=== PATIENT | female | born 1960 | race Caucasian/White ===

== ENCOUNTER 2019-03-18 10:01 | Inpatient (IN) | payer BC ==
--- NOTE | 2019-03-18 10:18 | ED ---
HPI Chest Pain - HPI Summary HPI Summary: Doctor in room upon arrival. This patient is a 59 year old F brought in by her father, Jay, to [facility] with a chief complaint of intermittent aching, heavy left anterior chest pain radiating to her left arm since mid-January 2019. The pain in her left arm is a throbbing pain that has kept her up at night before. Patient rated the pain 8/10 in severity this morning but 0/10 in severity currently. Patient reports lightheadedness (this morning) and SOB upon exertion. Patient denies fever, cough, swollen legs, calf pain, and left arm pain with movement currently. She did not take her BP medications this morning because she was waiting for them to get refilled, but BP meds were given upon arrival. 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 Her PCP is Dr. Shaw. She had 2-3 pieces of cantaloupe at 08:00 today. 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 Anju Sandoval, pt saw oncology at [facility] and declined radiation therapy). She denies PMHx of CHF, diabetes, and hyperlipidemia. She is a former smoker and drinks alcohol occasionally. FHx of brother with bicuspid aortic valve and father with aortic stenosis. Denies FHx of breast cancer. She has never had a stress test before. PRIOR ECHO at [facility] on 01/20/2019 SHOWS: Aortic Valve: The aortic valve is trileaflet. There is no evidence of aortic regurgitation. There is no evidence of aortic stenosis. Conclusions: The left ventricular chamber size is normal. The estimated ejection fraction is 55-60% septal dysychrony, otherwise normal wall motion. Abnormal left ventricular diastolic function is observed. The right ventricular global systolic function is normal. All valves show normal function. No prior echo to compare. Vital signs while in room: HR 115 bpm, BP 205/122. Home Medications Medication Instructions Recorded Confirmed Type Amlodipine Besylate [Norvasc] 5 mg PO QAM 02/04/19 02/12/19 History Biotin 1 mg PO DAILY 03/18/19 03/18/19 History Cholecalciferol (Vitamin D3) 2,000 unit PO DAILY 03/18/19 03/18/19 History [Vitamin D-3] Cyanocobalamin TAB* [Vitamin B12 1,000 mcg PO DAILY 03/18/19 03/18/19 History TAB*] Hydrochlorothiazide TAB* 25 mg PO DAILY 03/18/19 03/18/19 History [Hydrodiuril TAB*] Metoprolol Succinate XL TAB* 100 mg PO DAILY 03/18/19 03/18/19 History [Toprol XL TAB*] [place]-3S/Dha/Epa/Fish Oil [Fish 1 each PO DAILY 03/18/19 03/18/19 History Oil 1,200 mg Softgel] - History of Current Complaint Chief Complaint: EDChestPainROMI Time Seen by Provider: 03/18/19 10:03 Hx Obtained From: Family/Member Service Specialist - Father Pain Intensity: 8 - Allergy/Home Medications Allergies/Adverse Reactions: Allergies Allergy/AdvReac Type Severity Reaction Status Date / Time amoxicillin Allergy Rash Verified 03/18/19 10:09 gluten Allergy Shortness Verified 03/18/19 10:09 of Breath latex Allergy Hives Verified 03/18/19 10:09 tape Allergy Hives Uncoded 02/12/19 07:39 Home Medications: Home Medications Biotin 1 mg PO DAILY 03/18/19 [History Confirmed 03/18/19] Cholecalciferol (Vitamin D3) [Vitamin D-3] 2,000 unit PO DAILY 03/18/19 [ History Confirmed 03/18/19] Cyanocobalamin TAB* [Vitamin B12 TAB*] 1,000 mcg PO DAILY 03/18/19 [History Confirmed 03/18/19] Hydrochlorothiazide TAB* [Hydrodiuril TAB*] 25 mg PO DAILY 03/18/19 [History Confirmed 03/18/19] Metoprolol Succinate XL TAB* [Toprol XL TAB*] 100 mg PO DAILY 03/18/19 [History Confirmed 03/18/19] [place]-3S/Dha/Epa/Fish Oil [Fish Oil 1,200 mg Softgel] 1 each PO DAILY 03/18/19 [ History Confirmed 03/18/19] PMH/Surg Hx/FS Hx/Imm Hx Endocrine/Hematology History: Denies: Hx Diabetes Cardiovascular History: Reports: Hx Hypertension - on meds Denies: Hx Pacemaker/ICD, Other Cardiovascular Problems/Disorders Respiratory History: Denies: Hx Asthma History: Denies: Hx Renal Disease Sensory History: Reports: Hx Contacts or Glasses - glasses Denies: Hx Hearing Aid Opthamlomology History: Reports: Hx Contacts or Glasses - glasses Psychiatric History: Denies: Hx Panic Disorder - Cancer History Hx Chemotherapy: No Hx Radiation Therapy: No - Surgical History Surgery Procedure, Year, and Place: 2 C SECTION, 1985, 1989. CHOLECYSTECTOMY, 2000. MARIBETH BREAST BIOPSY , Rt LUMPECTOMY (BENIGN FIBROID), 1998 Hx Anesthesia Reactions: Yes - crying Infectious Disease History: No Infectious Disease History: Denies: Traveled Outside the [place] in Last 30 Days - Family History Known Family History: Positive: Cardiac Disease - brother with bicuspid aortic valve, father with aortic stenosis Negative: Other - Breast cancer - Social History Occupation: Works From/At Home Lives: With Family Alcohol Use: Weekly Alcohol Amount: 4 Substance Use Type: Reports: None Smoking Status (MU): Former Smoker Amount Used/How Often: pack a day for 30 yrs Have You Chewed or Dipped Tobacco in the LAST YEAR: No Have You Smoked in the Last Year: No Review of Systems Negative: Fever Positive: Chest Pain - Aching, heavy left anterior chest pain radiating to her left arm Positive: Shortness Of Breath - upon exertion. Negative: Cough Negative: Edema - swollen legs, Other - calf pain and left arm pain with movement currently Neurological: Other - this morning All Other Systems Reviewed And Are Negative: Yes Physical Exam - Summary Physical Exam Summary: Appearance: Ill-appearing, moderate pain distress, well-nourished Skin: Warm, color reflects adequate perfusion, dry Head: Normal Head/Face inspection, atraumatic Eyes: Conjunctiva clear ENT: Normal inspection Neck: Supple, no nodes, no JVD Respiratory: Lungs clear, normal breath sounds, no respiratory distress Cardio: Hypertensive, BP 205/122, tachycardic 115 bpm. Regular rate. No murmur, pulses normal, brisk capillary refill Abdomen: Soft, nontender Bowel sounds: Present Musculoskeletal: Strength Intact/ROM intact, no calf tenderness, no edema. Psychological: Normal Neuro: Alert, muscle tone normal, no focal deficit Triage Information Reviewed: Yes Vital Signs On Initial Exam: Initial Vitals Temp Pulse Resp BP Pulse Ox 98.4 F 115 16 205/122 98 03/18/19 10:07 03/18/19 10:07 03/18/19 10:07 03/18/19 10:07 03/18/19 10:07 Vital Signs Reviewed: Yes Diagnostics - Vital Signs Vital Signs Temp Pulse Resp BP Pulse Ox 03/18/19 10:07 98.4 F 115 16 205/122 98 - Laboratory Result Diagrams: 03/18/19 10:43 03/18/19 10:43 Lab Statement: Any lab studies that have been ordered have been reviewed, and results considered in the medical decision making process. - Radiology Chest X-Ray Radiology Interpretation Completed By: Radiologist Summary of Radiographic Findings: 10:54. NO ACTIVE CARDIOPULMONARY DISEASE IS NOTED. ED Physician has reviewed this imaging report. - CT Chest/Thorax CTA CT Interpretation Completed By: Radiologist Summary of CT Findings: 12:21. 1. NO PULMONARY ARTERIAL FILLING DEFECT TO SUGGEST PULMONARY EMBOLISM.. 2. HEPATOMEGALY WITH FATTY INFILTRATION OF LIVER. 3. 2.4 CM LEFT THYROID NODULE. [facility] [employer] [employer] INCIDENTAL THYROID. FINDINGS COMMITTEE RECOMMENDS THYROID ULTRASOUND FOR INCIDENTAL NONSUSPICIOUS THYROID. NODULES GREATER THAN OR EQUAL TO 1.5 CM IN SIZE FOR THE PATIENT OVER THE AGE OF 35. ED Physician has reviewed this imaging report. - EKG 10:09 Cardiac Rate: Tachycardia - 103 BPM EKG Rhythm: Sinus Rhythm ST Segment: Non-Specific Ectopy: None EKG Comparison: No Significant Change - Compared with 03/16/2001. Summary of EKG Findings: Normal AV, prolonged IV conduction time, in right bundle branch block pattern, normal QTC, right axis. No acute changes. 14:55 Cardiac Rate: NL - 70 bpm EKG Rhythm: Sinus Rhythm ST Segment: Non-Specific Ectopy: None EKG Comparison: No Significant Change - Compared with EKG earlier today, minimal ST depressions, V4 through V6 have resolved. Not a STEMI. Summary of EKG Findings: Nml AV/IV CT, nml QTc, and nml axis. No acute changes. Not a STEMI. Re-Evaluation - Re-Evaluation 1 Re-Evaluation Time: 11:15 Comment: Vitals: HR 97 bpm, BP 128/97, O2 sat 96%. 2 Re-Evaluation Time: 14:00 Comment: Updated patient on her CTA results and gave her a paper copy of the results. Patient is aware of thyroid nodule and need for followup. She has never had a stress test before. Vitals: HR 77 bpm, 133/85 BP, O2 sat 98%. 3 Re-Evaluation Time: 14:56 Comment: Pain level is 0/10. Second EKG is in progress. I informed the patient of her abnormal troponin levels. Vitals: HR 79 BPM, 146/72 BP, O2 Sat 98%. 4 Re-Evaluation Time: 15:04 Comment: I informed the patient of her second EKG results and told her that she will be admitted to Dr. Castellanos, hospitalist. Vitals: HR 79 bpm, 149/77 BP, O2 Sat 98% Chest Pain Course/Dx - Course Course Of Treatment: This patient is a 59 year old F brought in by father, Jay , to [facility] with a chief complaint of intermittent aching, heavy left anterior chest pain radiating to her left arm since mid-January 2019. She was not given aspirin here because she had already taken it at home. Troponin of 0.04 noted at 11:14. Discussed the results of the CTA during a re-eval and gave her a paper copy of the results. Patient is aware of thyroid nodule and need for followup. Troponin of 0.20 noted at 14:52, and a second EKG was ordered at that time. I discussed the case with Dr. Castellanos, hospitalist, who will admit the patient with dx of chest pain and elevated troponin. - Diagnoses Provider Diagnoses: Chest pain, Elevated troponin - Provider Notifications Discussed Care Of Patient With: Shira Castellanos - Hospitalist Time Discussed With Above Provider: 15:02 Instructed by Provider To: Admit As Inpatient - Critical Care Time Critical Care Time: 30-74 min - 30 minutes Discharge - Sign-Out/Discharge Documenting (check all that apply): Patient Departure - Admit Patient Received Moderate/Deep Sedation with Procedure: No - Discharge Plan Condition: Stable Disposition: ADMITTED TO [facility] - Attestation Statements Document Initiated by Scribe: Yes Documenting Scribe: Ty Raza Provider For Whom Scribe is Documenting (Include Credential): Glo Askew MD Scribe Attestation: Ty Roach, scribed for Glo Askew MD on 03/18/19 at 1745. Status of Scribe Document: Ready
--- OUTSIDE RECORDS SUMMARY | 2019-03-18 10:30 | XMS REPORT | Continuity of Care Document ---
:1960 External Reference #:[id number] Author Name Karey Ferguson Care Team Providers Name Role Phone Kassandra Shaw MD Primary Care Physician Unavailable Payers Date Identification Numbers Payment Provider Subscriber Policy Number: [id number] [facility] [employer] Name: [id number] [id number] PayID: [id number] [place] [id number] Advance Directives Description No Information Available Problems Date Description Provider Status Onset: 09/30/2014 Arthropathy Driss Samuels M.D. Active Family History Date Family Member(s) Observation Comments General Heart Disease General polymyalgia rheumatica in father General Hypertension Social History Type Date Description Comments Sex Unknown Marital Status Lives With Occupation [employer] Smokeless Tobacco Never Used Smokeless Tobacco ETOH Use Currently consumes alcohol Tobacco Use Start: Unknown End: Patient is a former smoker quit 2011 Unknown Recreational Drug Use Denies Drug Use Smoking Status Reviewed: 02/25/19 Patient is a former smoker quit 2011 Exercise Type/Frequency Exercises regularly Allergies, Adverse Reactions, Alerts Date Description Reaction Status Severity Comments 08/17/2014 Amoxicillin Active rash 01/27/2019 Latex rash Active 01/27/2019 Adhesive rash Active Medications Medication Date Status Form Strength Qnty SIG Indications Ordering Provider Vitamin D Active Tablets 2000Unit 1 by Unknown 00 mouth qd.. Metoprolol Succinate Active Tablets 50mg 1 by Unknown ER 00 ER 24HR mouth twice a day Amlodipine Besylate Active Tablets 5mg 1 by Unknown 00 mouth every day Biotin Active Tablets 1000mcg 1 tab Unknown 00 daily Vitamin B-12 Active Tablets 2500mcg take Unknown 00 Sub one tablet under the tongue every day Hydrochlorothiazide Active Tablets 25mg Valeria, 00 Kassandra Kirk MD Naproxen 09/30/20 Hx Tablets 500mg 60tab 1 M12.9 Driss 14 - s tablet Samuels, Unknown with M.D. food by mouth twice a day prn Metoprolol Tartrate Hx Tablets 25mg Unknown 00 - Unknown Vitamin B12 Hx Unknown 00 - 09/30/20 14 Immunizations Description No Information Available Vital Signs Date Vital Result Comment 02/25/2019 9:27am Heart Rate 74 /min Respiratory Rate 16 /min Body Temperature 99.0 F 01/27/2019 2:19pm Height 63 inches 5'3" Weight 250.00 lb Heart Rate 86 /min BP Systolic 140 mmHg BP Diastolic 88 mmHg Respiratory Rate 16 /min Body Temperature 99.2 F BMI (Body Mass Index) 44.3 kg/m2 04/09/2016 11:42am Height 63.5 inches 5'3.50" Heart Rate 64 /min BP Systolic Sitting 150 mmHg BP Diastolic Sitting 80 mmHg Body Temperature 98.9 F Pain Level 2 03/06/2016 8:58am Height 63.5 inches 5'3.50" Weight 262.00 lb Heart Rate 92 /min BP Systolic Sitting 162 mmHg BP Diastolic Sitting 98 mmHg Pain Level 3 BMI (Body Mass Index) 45.7 kg/m2 10/06/2014 10:24am Height 63.5 inches 5'3.50" Heart Rate 88 /min BP Systolic Sitting 138 mmHg BP Diastolic Sitting 90 mmHg Pain Level 3 09/30/2014 8:48am Height 63.5 inches 5'3.50" Weight 251.00 lb Heart Rate 76 /min BP Systolic Sitting 140 mmHg BP Diastolic Sitting 90 mmHg Pain Level 8 BMI (Body Mass Index) 43.8 kg/m2 08/17/2014 10:29am Height 63 inches 5'3" Weight 247.00 lb Heart Rate 100 /min BP Systolic 169 mmHg BP Diastolic 90 mmHg BMI (Body Mass Index) 43.7 kg/m2 Results Test Date Facility Test Result H/L Range Note Laboratory test 02/12/2019 [facility] Surgical SEE RESULT [address] [place] [address] [phone] Laboratory test 03/06/2016 [facility] Erythrocyte Sed 23 mm/Hr N 0-[address] [place] [address] [phone] Laboratory test 03/06/2016 [facility] Angiotensin 26 U/L N 8 - [address] [place] [address] [phone] C Reactive Protein 13.38 mg/L High < 5.00 3 Celiac Panel 03/06/2016 [facility] Tissue Transglutaminase <1.2 U/mL N [address] [place] [address] [phone] Immunoglobulin A 357 mg/dL Abnormal 61 - 356 Celiac Interpretation See Comment N 5 Hla B27 03/06/2016 [facility] Hla B27 Negative N [address] [place] [address] [phone] Hla B27 Interp See Comment N 7 Laboratory test 03/06/2016 [facility] Rheumatoid Factor <15 IU/ mL N <[address] [place] [address] [phone] Lyme Disease Serology Negative N Negative 9 Celiac Hla DQ1/DQ2 03/06/2016 [facility] Hla-Dqa1 SEE BELOW N [address] [place] [address] [phone] Hla-DQB1 SEE BELOW N 11 Celiac Gene Pairs Present? No N Celiac Gene Interpretation See Comment N 12 Laboratory test 03/06/2016 [facility] Magnesium 1.9 mg/dL N 1.9-2.[address] [place] [address] [phone] Iron & Iron Binding 03/06/2016 [facility] Iron 97 g/dL N 50- [address] [place] [address] [phone] Unsaturated Iron Binding 336 g/dL N Total Iron Binding Capacity 433 g/dL N 250-450 % Iron Saturation 22 % N 15-55 Laboratory test 03/06/2016 [facility] Liver-Kidney <5.0 U N [address] [place] [address] [phone] Smooth Muscle Antibody Negative N Negative 14 Comp Metabolic Panel 03/06/2016 [facility] Sodium 137 mmol/L N 133-145 [address] [place] [address] [phone] Potassium 4.4 mmol/L N 3.5-5.0 Chloride 102 mmol/L N 101-111 Co2 Carbon Dioxide 29 mmol/L N 22-32 Anion Gap 6 mmol/L N 2-11 Glucose 96 mg/dL N 70-100 Blood Urea Nitrogen 11 mg/dL N 6-24 Creatinine 0.76 mg/dL N 0.51-0.95 BUN/Creatinine Ratio 14.5 N 8-20 Calcium 10.0 mg/dL N 8.6-10.3 Total Protein 7.0 g/dL N 6.4-8.9 Albumin 4.4 g/dL N 3.2-5.2 Globulin 2.6 g/dL N 2-4 Albumin/Globulin Ratio 1.7 N 1-3 Total Bilirubin 0.50 mg/dL N 0.2-1.0 Alkaline Phosphatase 73 U/L N 34-104 Alt 75 U/L High 7-52 Ast 38 U/L N 13-39 Egfr Non- 79.3 N >60 Egfr 102.0 N >60 15 Laboratory test 03/06/2016 [facility] Ferritin 85.3 ng/mL N 11 -307 finding [address] [place] [address] [phone] Uric Acid 5.8 mg/dL N 2.3-6.6 Connective Tissue 03/06/2016 [facility] Anti-Nuclear 0.2 U N [address] [facility] [place] [address] [phone] Cyclic Citrullinated Peptide <15.6 U N 17 Interpretation See Comment N 18 Laboratory test 08/17/2014 [facility] Uric Acid 5.7 mg/dL N 2.3-6.6 [address] [facility] [place] [address] [phone] Lyme Disease Serology Negative N Negative 19 1 SEE RESULT BELOW Name: DESTINY BUCIO : [address]: Anju Sandoval MD Acct: [id number] Unit: [id number] AGE: 59 Location: SDS Re02/12/19 SEX: F Status: DEP SDC SPEC: [id number] LIANE: 02/12/19-[address]: Anju Sandoval MD REQ: [id number] RECD: 02/12/19-115 STATUS: SOUT _ ORDERED: LEVEL 5 FINAL DIAGNOSIS Breast, right, needle localization excision: -- Ductal carcinoma in situ (DCIS), with: Size: 12 mm maximal span. Extent and distribution: Single focus identified.. Architectural pattern: Solid and perform. Nuclear grade: 3. Necrosis: Not seen. Microcalcifications: Surgical margins are clear by greater than 5 mm. Microinvasion: Not seen. ER/KS by immunohistochemistry with appropriate controls: ER: Positive, 3+, 100% of DCIS KS: Positive , 3+, 80% of DCIS Microcalcifications: Not seen. Other findings: Exuberant prior biopsy site related changes. Senescent fibroadenoma. Moderate epithelial hyperplasia without atypia. pTNM histopathologic stage: pTis. Comment: Hormone receptor studies reported above are from prior biopsy [id number]. Dr. Chilel has reviewed this case and concurs. CONTINUED ON NEXT PAGE DEPARTMENT OF PATHOLOGY, [address], [place], [place] [address] Bi Cueva M.D. Director [facility] # [id number] RUN DATE: 02/16/19 [facility] LAB LIVE PAGE 2 Patient: DESTINY BUCIO [id number] (Continued) PRE-OPERATIVE DIAGNOSIS (Continued) PRE-OPERATIVE DIAGNOSIS Right breast mass; short stitch superior, medium stitch medial, long stitch lateral GROSS DESCRIPTION The specimen is received fresh labeled, Right Breast Mass, Short Stitch Superior, Medium Stitch Medial, Long Stitch Lateral, and consists of a 7.0 x 6.0 by up to 3.3 cm yellow ovoid portion of fibrofatty soft tissue with three attached sutures which are designated as follows: long-lateral, short-superior and medium-medial. The specimen is focally surfaced by a 0.5 up to 0.2 cm gonsales-cotto skin fragment on the mid superior anterior aspect. There is a needle localization wire entering the specimen adjacent to the skin fragment and extending towards the central to inferior anterior specimen. There is a 1.6 x 1.6 by up to 1.2 cm gonsales-white to brown rubbery to gelatinous focally disrupted area associated with the localization wire, 0.2 cm from the superior anterior margin. There is a 0.2 x 0.1 cm silver metallic cylindrical clip within this area. Additionally, there is a 0.9 x 0.9 x 0.8 cm gonsales-white well-defined focally cystic rubbery nodule, 0.6 cm inferomedial to the larger area. The remaining cut surface consists predominantly of yellow lobulated adipose tissue with scant interspersed gonsales-white fibrous tissue. The specimen is inked as follows: superior anterior-blue, inferior anterior-green and deep-black, serially sectioned from lateral to medial and branch customer service representative sections are submitted in cassettes A through J to include gelatinous lesion in cassettes C-D and F-G including section associated with wire and clip in cassette D and cystic nodule in cassettes G through I. Signed by and Reported on: Bi Cueva MD [address] END OF REPORT DEPARTMENT OF PATHOLOGY, [address] [place] [address] Bi Cueva M.D. Director [facility] # [id number] 2 Test Performed by: [place] [address] Pediatric Hospitalist: To Streeter II, M.D., Ph.D. 3 Acute inflammation: >10.00 4 REFERENCE VALUE <4.0 (Negative) Test Performed by: [place] [id number] Pediatric Hospitalist: To Streeter II, M.D., Ph.D. 5 Negative serology. Celiac disease unlikely. However, approximately 10% of patients with celiac disease are seronegative. Also, patients who are already adhering to a gluten-free diet may be seronegative. If celiac disease is highly clinically suspected, consider HLA-DQ typing. Test Performed by: [place] [address] Pediatric Hospitalist: To Streeter II, M.D., Ph.D. 6 REFERENCE VALUE Not Applicable 7 RESULT: HLA-B27 antigen was not detected. ADDITIONAL INFORMATION Method: Flow Cytometry Performing Laboratory CLIA# [id number] Test Performed by: [place] [address] Pediatric Hospitalist: To Streeter II, M.D., Ph.D. 8 Test Performed by: [place] [address] Pediatric Hospitalist: To Streeter II, M.D., Ph.D. 9 Serologic response to B. burgdorferi infection is not detected, but cannot rule out early infection during which low or undetectable antibody levels to B. burgdorferi may be present. If clinically indicated, a new serum specimen should be submitted in 7-14 days. Test Performed by: [place] [address] Pediatric Hospitalist: oT Streeter II, M.D., Ph.D. 10 RESULT: 02:01,05 REFERENCE VALUE Not Applicable 11 RESULT: 03:01,03:03 DQ Serologic Equivalent: 7,9 REFERENCE VALUE Not Applicable 12 The absence of HLA celiac permissive genes would make the presence of celiac disease unlikely. ADDITIONAL INFORMATION Method: Molecular typing of HLA antigens performed using reverse SSOP and/or SSP methods, reported as serological equivalents and low to medium resolution molecular values. Performing Laboratory CLIA# [id number] Test Performed by: [place] [address] Pediatric Hospitalist: To Streeter II, M.D., Ph.D. 13 REFERENCE VALUE <=20.0 (Negative) Test Performed by: [place] [address] Pediatric Hospitalist: To Streeter II, M.D., Ph.D. 14 Test Performed by: [place] [address] Pediatric Hospitalist: To Streeter II, M.D., Ph.D. 15 Because ethnic data is not always readily available, this report includes an eGFR for both -Americans and non- Americans. The National Kidney Disease Education Program (NKDEP) does not endorse the use of the MDRD equation for patients that are not between the ages of 18 and 70, are , have extremes of body size, muscle mass, or nutritional status, or are non- or non-. According to the National Kidney Foundation, irrespective of diagnosis, the stage of the disease is based on the level of kidney function: Stage Description GFR(mL/min/1.73 m(2)) 1 Kidney damage with normal or decreased GFR 90 2 Kidney damage with mild decrease in GFR 60-89 3 Moderate decrease in GFR 30-59 4 Severe decrease in GFR 15-29 5 Kidney failure <15 (or dialysis) 16 REFERENCE VALUE <=1.0 (Negative) 17 REFERENCE VALUE <20.0 (Negative) 18 Tests for antibodies to dsDNA and MARTÍN antigens are not performed automatically unless the CHALINO result is > or= 3.0 U. Studies performed at [facility] indicate that positive CHALINO results <3.0 U are rarely accompanied by positive second order tests. Test Performed by: [facility] [place] [address] Pediatric Hospitalist: To Streeter II, M.D., Ph.D. 19 Serologic response to B. burgdorferi infection is not detected, but cannot rule out early infection during which low or undetectable antibody levels to B. burgdorferi may be present. If clinically indicated, a new serum specimen should be submitted in 7-14 days. Test Performed by: [facility] [place] [address] Pediatric Hospitalist: Vignesh Morales III, M.D. Procedures Date Code Description Status 02/12/2019 36679 Mastectomy Partial Completed 02/12/2019 87914 Mastectomy Partial Completed 02/12/2019 [id number] Mammogram Completed 01/20/2019 10519 ECHO Transthorasic Realtime 2D W Doppler & Color Flow Completed Hosp 01/18/2019 [id number] Mammogram Completed 10/30/2018 [id number] Mammogram Completed 07/15/2017 [id number] Mammogram Completed 12/25/2016 [id number] Mammogram Completed 08/17/2014 07339 Xray Knee 3 Views Completed 08/17/2014 63948 Xray Knee 3 Views Completed Encounters Type Date Location Provider Dx Diagnosis Office Visit [facility] Anju Sandoval MD C50.911 Malignant neoplasm 2:15p Of [facility] of unsp site of right female breast Office Visit 04/09/2016 Rheumatology Paulina Nicole.9 Arthropathy, 11:40a [facility] Tom unspecified M22.2x9 Patellofemoral disorders, unspecified knee M06.4 Inflammatory polyarthropathy Office Visit 03/06/2016 9:00a Rheumatology Guanakito Robertson2.9 Arthropathy, [facility] Choudhary M.D. 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 M62.838 Other muscle spasm R74.0 Nonspec elev of levels of transamns & lactic acid dehydrgnse R79.82 Elevated C-reactive protein (CRP) Office Visit 10/06/2014 10:20a Rheumatology Driss Samuels, 716.96 Arthropathy [facility] Vaishali Unspec Lower Leg Office Visit 09/30/2014 9:00a Rheumatology Driss Samuels 716.96 Arthropathy [facility] Vaishali Unspec Lower Leg Office Visit 08/17/2014 10:00a Orthopedic Yang Hernandez 716.96 Arthropathy [facility] Tom Unspec Lower Leg Plan of Treatment Future Appointment(s):03/03/2019 1:50 pm - Alejandrina Huffman MD at [facility] Wkbibjuodlu92/28/2019 - Anju Sandoval, MDC50.911 Malignant neoplasm of unspecified site of right female breasFollow up:Please feel free to return and see me as needed.
[2019-03-18] MEDS ORDERED: Metoprolol Tartrate TAB* 50 mg PO ONE (10:40)
[2019-03-18] MEDS ORDERED: amLODIPine TAB* 5 MG PO ONE ×2 (10:41→18:59)
[2019-03-18] MEDS ORDERED: Hydrochlorothiazide TAB* 25 MG PO ONE (10:41)
[2019-03-18 10:52] LABS: ABS Basophils 0 10^3/ul (0-0.2); ABS Eosinophils 0.2 10^3/ul (0-0.6); ABS Lymphocytes 2.8 10^3/ul (1.0-4.8); ABS Monocytes 0.6 10^3/ul (0-0.8); ABS Neutrophils 2.5 10^3/ul (1.5-7.7); ABS Nucleated RBC 0 10^3/ul; Eosinophil % 2.6 %; Hematocrit 41 % (33-41); Hemoglobin 13.9 g/dL (12.0-16.0); Lymphocyte % 46.5 %; Mean Corpuscular HGB Conc 34 g/dL (31-36); Mean Corpuscular Hemoglobin 30 pg (27-31); Mean Corpuscular Volume 88 fL (80-97); Mean Platelet Volume 7.5 fL (7.4-10.4); Nucleated Red Blood Cells % 0; Platelet Count 334 10^3/uL (150-450); Red Blood Count 4.63 10^6 /uL (3.70-4.87); Red Cell Distribution Width 14 % (10.5-15); White Blood Count 6.1 10^3/uL (3.5-10.8)
[2019-03-18 11:11] LABS: Albumin 4.3 g/dL (3.2-5.2); Albumin/Globulin Ratio 1.4 (1-3); BUN/Creatinine Ratio 14.3 (8-20); Calcium 9.5 mg/dL (8.6-10.3); EGFR African American 104.4 (>60); EGFR Non-African American 86.2 (>60); Potassium 3.6 mmol/L (3.5-5.0); Total Bilirubin 0.5 mg/dL (0.2-1.0); Total Protein 7.3 g/dL (6.4-8.9)
[2019-03-18 11:13] LABS: Troponin I 0.04 ng/mL (<0.04)
[2019-03-18] MEDS ORDERED: Iohexol 350* (CONTRAST) 500 ML MDV IV ONE (11:43)
[2019-03-18 14:39] LABS: T4, Total 8.6 mcg/dL (6.09-12.23)
[2019-03-18 14:44] LABS: Free T4 1.02 ng/dL (0.61-1.12)
[2019-03-18 14:51] LABS: Troponin I 0.2 ng/mL (<0.04)
[2019-03-18 15:31] LABS: TSH (Thyroid Stimulating Horm) 0.69 mcIU/mL (0.34-5.60)
[2019-03-18] MEDS ORDERED: Heparin DRIP 25,000 UNITS(*) 25,000 UNITS/500 ML BAG IV SCH (16:15)
[2019-03-18] MEDS ORDERED: Al Hydrox/Mg Hydrox/Simet LIQ* 30 ML UDC PO PRN (16:16)
[2019-03-18] MEDS ORDERED: Magnesium Hydroxide LIQ* 30 ML UDC PO PRN (16:16)
[2019-03-18] MEDS ORDERED: Acetaminophen TAB* 325 MG PO PRN (16:16)
[2019-03-18] MEDS ORDERED: NS 0.9% 1000 ML** 1,000 ML IV SCH (16:30)
[2019-03-18] MEDS ORDERED: Heparin DRIP 25,000 UNITS(*) 25,000 UNITS/500 ML BAG ONE (16:47)
[2019-03-18] MEDS ORDERED: Heparin VIAL(*) 5000 UNITS/ML VIAL (FIVE THOUSAND) ONE (16:47)
[2019-03-18 17:54] LABS: Troponin I 0.24 ng/mL (<0.04)
[2019-03-18] MEDS ORDERED: Ticagrelor* 90 MG TAB PO ONE (19:00)
[2019-03-18] MEDS ORDERED: Nitroglycerin TAB 0.4 MG* 0.4 MG TAB SL PRN (19:02)
--- NOTE | 2019-03-18 19:12 | CONSULT ---
Subjective Date of Service: 03/18/19 Interval History: Date of admission and consult 03/18/2019 PMD: Dr. Shaw Service: Hospitalist CC: Chest and arm pain Reason for consult: NSTEMI HPI Destiny Bucio is a 59 year old woman with a history as below. She is accompanied by her . She has had several months of intermittent left arm aching and throbbing. It could be 5 to 10 days between episodes. One time it woke her up and could not get back to sleep. Another time was playing with children. It was not reliably brought on with exertion. Yesterday had dyspnea on exertion which she thought was very unusual for her. This AM at 8:30 AM (usually takes BP medications at 8 AM but was waiting for refills) she experienced very sever left arm symptoms. This was same quality as before but worse intensity. It was also associated with left upper chest and left scapula region pain. She took aspirin 325 mg x 3, called her father who took her to [facility] ER. She is now asymptomatic. Her initial BP was 205/122 mmHg. She ruled in for NSTEMI with rising troponin levels. PMhx/surgical hx - Obesity - HTN. Amlodipine and HCTZ were added to metoprolol this December. She had kept track of BP at home for 2 weeks then and the BP readings were better but - she can't be specific with numbers. The BP on a 01/27/2019 surgical office visit was 144/88 mmHg - Prior tobacco use, on and off for years, < 1 PPD, quit 6 years ago. - Dyslipidemia, not on a statin - Breast cancer: s/p lobectomy right breast last month for DCIS - Pertinent negative is she denies any history of bleeding, anemia, blood transfusion or kidney disease allergies: amoxicllin, gluten, latex soc hx Prior tobacco, no excessive etoh or drug use family hx: Father had CABG age 69 and went on to have a TAVR at age ~ 80 [address] Garcia Brother has bicuspid AoV and had to be replaced Medications Active Medications: Active Medications Generic Name Dose Route Start Last Admin Trade Name Freq PRN Reason Stop Dose Admin Acetaminophen 650 mg 03/18/19 16:16 Tylenol Tab* PO Q4H PRN FEVER/PAIN Al Hydrox/Mg Hydrox/Simethicone 30 ml 03/18/19 16:16 Maalox Plus* PO Q6H PRN INDIGESTION Amlodipine Besylate 10 mg 03/19/19 09:00 Norvasc Tab* PO QAM [facility] Aspirin 81 mg 03/19/19 09:00 Aspirin Ec Tab* PO DAILY [facility] Atorvastatin Calcium 80 mg 03/18/19 21:00 Lipitor* PO 2100 [facility] Cyanocobalamin 1,000 mcg 03/19/19 09:00 Vitamin B12 Tab* PO DAILY [facility] Hydrochlorothiazide 25 mg 03/19/19 09:00 Hydrodiuril Tab* PO DAILY [facility] Heparin Sodium/Dextrose 25,000 units in 500 mls @ 0 mls/hr 03/18/19 16:15 16:56 Heparin Drip 25,000 Units(*) IV 19 mls/hr PER RATE [facility] Administration Protocol Per Protocol Sodium Chloride 1,000 mls @ 75 mls/hr 03/18/19 16:30 Ns 0.9% 1000 Ml IV PER RATE [facility] Magnesium Hydroxide 30 ml 03/18/19 16:16 Milk Of Magnesia Liq* PO Q4H PRN CONSTIPATION Metoprolol Succinate 50 mg 03/18/19 21:00 Toprol Xl Tab* PO BID [facility] Nitroglycerin 0.4 mg 03/18/19 19:02 Nitroglycerin Tab 0.4 Mg* SL Q5M PRN ANGINA Potassium Chloride 40 meq 03/18/19 21:00 Klor Con Er Tab* PO 03/18/19 21:01 ONCE ONE Ticagrelor 90 mg 03/19/19 09:00 Brilinta* PO BID [facility] Home Medications: Amlodipine Besylate [Norvasc] 5 mg PO QAM 02/04/19 [History Confirmed 03/18/19] Biotin 1 mg PO DAILY 03/18/19 [History Confirmed 03/18/19] Cholecalciferol (Vitamin D3) [Vitamin D-3] 2,000 unit PO DAILY 03/18/19 [ History Confirmed 03/18/19] Cyanocobalamin TAB* [Vitamin B12 TAB*] 1,000 mcg PO DAILY 03/18/19 [History Confirmed 03/18/19] Hydrochlorothiazide TAB* [Hydrodiuril TAB*] 25 mg PO DAILY 03/18/19 [History Confirmed 03/18/19] Metoprolol Succinate XL TAB* [Toprol XL TAB*] 100 mg PO DAILY 03/18/19 [History Confirmed 03/18/19] [place]-3S/Dha/Epa/Fish Oil [Fish Oil 1,200 mg Softgel] 1 each PO DAILY 03/18/19 [ History Confirmed 03/18/19] Review of Systems - Measurements Intake and Output: Intake and Output Last 24 Hours 03/16/19 03/17/19 03/18/19 03/19/19 06:59 06:59 06:59 06:59 Weight 256 lb - Review of Systems Constitutional Symptoms: Negative: Weight Gain, Weight Loss, Weakness, Fatigue Dermatology: Negative: Rash, Skin Lesions HEENT: Negative: Change in Hearing, Vertigo Eyes: Negative: Change in Vision, Double Vision Thyroid: Negative: Primary Hypothyroidism, Primary Hyperthyroidism, Weight Loss, Weight Gain Pulmonary: Positive: Shortness of Breath, Exercise Intolerance Negative: Cough, Sputum, Hemoptysis, Wheezing, Respiratory Distress, COPD, Asthma Cardiology: Positive: Chest Pain, Shortness of Breath Negative: Palpitations, Swelling of Ankles, Peripheral Vascular Dis, Edema, Faintness, Syncope, Claudication, Paroxysmal Nocturnal Dyspnea, Orthopnea Gastroenterology: Negative: Abdominal Pain, Nausea, Vomiting, Anorexia, Haematemesis, Melena Genital - Urinary: Negative: Dysuria, Hematuria Musculoskeletal: Negative: Joint Pain, Joint Stiffness Endocrinology: Positive: Obesity Negative: Polydipsia, Polyuria, Gynecomastia, Pituitary Disease, Other Hematologic/Lymphatic: Negative: Anemia, Easy Brusing, Hx Leukemia, Hx Lymphoma, Use of Anticoagulant, Use of Antiplatelet Drugs Neurology: Negative: Change in Balancing, Change in Coordination, Change in Memory, Hx of Stroke\TIA, Hx Seizures Psychiatry: Negative: Unusual Anxiety, Suicidal Ideation Allergic/Immunologic: Negative: Hx HIV, Immunocompromise Review of Systems Statement: All other review of systems negative, unless stated above. Objective Vital Signs: Temp Pulse Resp BP Pulse Ox 97.8 F 77 18 132/96 97 03/18/19 17:52 03/18/19 17:52 03/18/19 17:52 03/18/19 17:52 03/18/19 17:52 Appearance: nad, pleasant Neck: Trachea Midline Respiratory: Symmetrical Chest Expansion and Respiratory Effort, Clear to Auscultation Cardiovascular: NL Sounds; No Murmurs; No JVD, RRR, No Edema Abdominal: NL Sounds; No Tenderness; No Distention, - - obese Extremities: No Edema, No Clubbing, Cyanosis Skin: No Rash or Ulcers Neurological: Alert and Oriented x 3 Laboratory Results: 03/18/19 10:43 03/18/19 10:43 Total Bilirubin 0.50 mg/dL (0.2-1.0) 03/18/19 10:43 AST 27 U/L (13-39) 03/18/19 10:43 ALT 42 U/L (7-52) 03/18/19 10:43 Alkaline Phosphatase 61 U/L (34-104) 03/18/19 10:43 Total Protein 7.3 g/dL (6.4-8.9) 03/18/19 10:43 Albumin 4.3 g/dL (3.2-5.2) 03/18/19 10:43 Globulin 3.0 g/dL (2-4) 03/18/19 10:43 Albumin/Globulin Ratio 1.4 (1-3) 03/18/19 10:43 TSH 0.69 mcIU/mL (0.34-5.60) 03/18/19 10:43 03/18/19 03/18/19 03/18/19 10:43 14:12 17:07 Troponin I 0.04 H* 0.20 H* 0.24 H* 01/2019 hgba1c 5.5 tri 142, tchol 271 ldl 172 hgba1c 5.5 Diagnostic Imaging: ekgs today: 1: ST 103 bpmp, kaur leads limited by artifact, subtle ST depression v4-v6 ? rate related vs. ischemia 2: NSR 70 bpm, LAE, normal EKG 3: NSR 75 bpm, subtle ST depression v4-v5 not present on ekg from 03/2011 echo 01/2019 reviewed and interpreted as Normal LVEF no segmental wall motion abnormalities noted, mild LVH, normal LA size, no significant valvular abnormalities noted - aortic valve not well visualized but appears tricuspid, unable to estimate PASP (unlikely to be significantly elevated based on other supportive findings) Assessment/Plan 1. NSTEMI - Suspect type 1 HI, hypertensive related also on differential - Class IV symptoms despite being on a BB and CCB at home 2. Obesity 3. HTN 4. Hyperlipidemia 5. Prior tobacco use - Start aspirin 81 mg po daily (ordered) - Start brilinta 180 mg x 1 now then 90 mg po bid (ordered) - Continue heparin gtt - Start lipitor 80 mg (ordered) - Change home toprol 100 mg po daily to 50 mg bid for now - Give extra 5 mg of amlodipine x 1 now then increase to 10 mg po daily starting tomorrow (ordered) - Continue hctz 25 mg po daily - Use PRN SL NTG tonight (ordered) - Needs IV fluid for tomorrow Cardiac catheterization with intent for revascularization indicated and recommended. Risks, benefits and alternatives discussed and patient wished to proceed. Discussed with Dr. Russo on phone. Will plan for tomorrow 03/19/2019. Thank you for allowing me to participate in the cardiovascular care of this patient. Please do not hesitate to contact me with questions or concerns.
[2019-03-18] MEDS: Metoprolol Succinate XL TAB* 50 MG PO SCH (20:21)
[2019-03-18] MEDS: Atorvastatin* 80 MG TAB PO SCH (20:21)
--- NOTE | 2019-03-18 20:32 | HP ---
CC: Dr. Kassandra Shaw * HISTORY AND PHYSICAL: DATE OF ADMISSION: 03/18/19 PRIMARY CARE PROVIDER: Dr. Kassandra Shaw. OTHER PROVIDERS: Dr. Camacho in consultation. ATTENDING PHYSICIAN: Dr. Castellanos * (dictated by Elias Vernon NP) CHIEF COMPLAINT: Chest pain. HISTORY OF PRESENT ILLNESS: Mrs. Bucio is a 59-year-old female with a past medical history significant for hypertension and breast cancer who presented to the emergency room today after an episode of chest pain around 0830. Patient reports that she was moving articles out of her bathroom in order to mop the floor and she started to have left-sided chest pain and left arm pain. Patient rates this pain as an 8/10 and describes the pain as a strong ache. Patient reports the pain did not have any associated symptoms and resolved on its own. Given these symptoms, patient called her father, who brought her to the emergency room via private car. On further assessment, patient reports that this morning when she first awoke and was making breakfast for her grandchildren , she did feel lightheaded and thought this was out of the ordinary. In addition, she reports that yesterday she was at the park with her grandchildren and she noticed that she was much more winded than she normally is. She reports no recent illness to describe this increase in shortness of breath. Finally, the patient also describes that she has been having a throbbing in her left arm for "a while," approximately 2 to 3 weeks. She reports 2 weeks ago, she was kept awake all night due to this throbbing in her left arm that she could not resolve. She also mentions that she has been having these "episodes" of a quick ache on the left side of her chest for a couple weeks. She said sometimes they would last a few minutes, other times they would last a couple hours. Patient reports they resolved on their own and they did not have any associated symptoms. Patient has been dealing with a diagnosis of breast cancer on the right and has been attributing these symptoms to stress and therefore, did not seek evaluation until today. While in the emergency department, patient had an EKG. Her initial EKG showed sinus rhythm with ST depression in V4 and V5. Patient's repeat EKG showed sinus rhythm and no noted ST depression. While in the emergency department, patient also had a CBC which was unremarkable and a CMP which revealed elevated glucose at 116. She also had initial troponin that was 0.04. Patient's repeat troponin was 0.20. Given these findings and patient's symptoms, we were asked to consult for admission. On my assessment, patient denies chest pain or any other symptoms including shortness of breath, palpitations, dizziness, weakness. When listening to her lungs, patient does report that taking a deep breath gives her the sensation of a muscle ache in her left chest. PAST MEDICAL HISTORY: 1. Hypertension. 2. Breast cancer. PAST SURGICAL HISTORY: 1. section. 2. Cholecystectomy. 3. Tubal ligation. 4. Lumpectomy in 1999 which was benign. 5. Lumpectomy on right in January 2019 which revealed breast cancer. HOME MEDICATIONS: 1. [place]-3 one each p.o. daily. 2. Biotin 1 mg p.o. daily. 3. HCTZ 25 mg p.o. daily. 4. Vitamin B12 at 1000 mcg p.o. daily. 5. Vitamin D 2000 units p.o. daily. 6. Metoprolol succinate XL tab 100 mg p.o. daily. 7. Amlodipine 5 mg p.o. q.a.m. ALLERGIES: Patient is allergic to AMOXICILLIN, LATEX, ADHESIVE TAPE, GLUTEN. FAMILY HISTORY: Patient reports her family history is positive for hypertension and cardiac disease. She reports mom has hypertension. She reports dad has hypertension, heart disease, polymyalgia rheumatica. SOCIAL HISTORY: Patient is . Patient lives with her . 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 Patient is a former smoker; she quit in 2011. Patient reports she smoked approximately 30 years on and off approximately at 1 pack per day. Patient reports 1 to 2 drinks weekly of alcohol. Patient denies drug use. REVIEW OF SYSTEMS: Constitutional: No fevers. No anorexia. No weight loss. Cardiac: Currently, no chest pain, no edema, no shortness of breath. Respiratory: No cough, no hemoptysis. Currently, no shortness of breath, but did have shortness of breath yesterday. GI: No nausea, vomiting. No diarrhea. No abdominal pain. : No gross hematuria or dysuria. Neuro: No focal weakness or sensory loss. The patient does report dizziness this morning that has resolved. Eyes: No visual complaints. ENT: No sore throat. Musculoskeletal: No arthritis or myalgias. Skin: No rashes or lesions. Psych : No anxiety or depression. PHYSICAL EXAMINATION GENERAL: Mrs. Bucio is a 59-year-old female who is sitting on the bed in the ED. She is in no acute distress. Appears stated age. VITAL SIGNS: Temp 98.4, HR 86, RR 16, O2 saturation 98% on room air, BP 151/85. HEENT: PERRLA. EOMs intact. Oral mucosa is moist without lesion. Posterior pharynx is clear. NECK: Full range of motion. No lymphadenopathy. RESPIRATORY: Symmetrical chest expansion. No accessory muscle use. Lungs are clear to auscultation. No rhonchi, wheezes, or rubs. CV: Regular rate and rhythm. S1, S2 present. No murmurs, rubs, or gallops. ABDOMEN: Soft, nontender to palpation. Bowel sounds x4. EXTREMITIES: Skin is warm and smooth bilaterally. No edema. No clubbing or cyanosis. Pedal pulses 2+ bilaterally. MUSCULOSKELETAL: Full range of motion. No pain or deformities. NEURO: Awake, alert, and oriented x4. Motor strength is 5/5 in the upper and lower extremities. SKIN: Grossly intact. DIAGNOSTIC STUDIES/LAB DATA: WBC 6.1, hemoglobin 13.9, hematocrit 41, platelets 334. Sodium 140, potassium 3.6, chloride 105, carbon dioxide 26. BUN 10, creatinine 0.70, glucose 116. Lactic acid 1.4. Troponin 0.04, repeat 0.20. Chest x-ray: Impression: No acute cardiopulmonary disease is noted. Chest/thorax CTA: Impression: No pulmonary artery filling deficit to suggest pulmonary embolism. Hepatomegaly without fatty infiltration of liver. A 2.4 cm left thyroid nodule. The [employer] Incidental Thyroid Findings Committee recommends thyroid ultrasound for incidental nonsuspicious thyroid nodules greater than or equal to 1.5 cm in size for patients over the age of 35. ASSESSMENT AND PLAN: Mrs. Bucio is a 59-year-old female with a past medical history significant for hypertension and breast cancer who presents to the emergency department today with complaints of chest pain and was found to have an elevated troponin. Patient will be admitted for acute coronary syndrome. 1. ACS/NSTEMI: As mentioned above, patient will be admitted for acute coronary syndrome. Given patient's chest pain and reported history, there is concern for acute coronary syndrome. Patient has been started on heparin drip. Patient was not given aspirin in the emergency department as she took 3 tabs of [address] Camacho was consulted and will see patient. In addition, Dr. Camacho recommended changing patient's Toprol from 100 mg p.o. daily to 50 mg b.i.d., which has been done and will start tonight. Patient also has a hemoglobin A1c, lipids, TSH ordered. 2. Hypertension: Patient has been mildly hypertensive here in the emergency room. It looks as if patient did not take her morning meds this morning; therefore, she was given them in the ED. We will continue her home medications with the change in the Toprol as mentioned above. 3. Breast cancer: Patient had a lumpectomy with Dr. Sandoval. Patient should follow up as recommended. Patient did not have radiation or chemotherapy. 4. Thyroid nodule: As mentioned above, there is incidental finding of a thyroid nodule on her CT. I would recommend patient follow up with her primary care regarding further imaging. 5. FEN: Patient will be n.p.o. until evaluated by cardiology as she may need intervention. 6. Code status: Patient is a full code. 7. Surrogate decision maker: Patient's surrogate decision maker will be her , Jet Bucio, who can be reached at [phone]. 8. DVT prophylaxis: Based on the DVT risk assessment, patient is high risk. Patient is currently on a heparin drip in preparation for possible cardiac catheterization. TIME SPENT: Approximately 70 minutes were spent on this admission, greater than half the time was spent with the patient and caregiver obtaining my history and performing my physical exam and reviewing my plan of care. The case has been reviewed with my attending, Dr. Castellanos, who is in agreement with my plan of care. ELIAS VERNON, LEELEE [id number]/[facility] #: [id number] KATHERINE
[2019-03-18] MEDS ORDERED: Potassium Chlor TAB* 20 MEQ TAB.ER PO ONE (21:00)
[2019-03-18 21:50] LABS: Activated Partial Thrombo Time 39.9 seconds (26.0-36.3); INR 0.98 (0.77-1.02)
[2019-03-19] MEDS ORDERED: Heparin VIAL(*) 5000 UNITS/ML VIAL (FIVE THOUSAND) IV PRN (00:07)
[2019-03-19] MEDS ORDERED: Metoprolol Tartrate TAB* 25 MG PO ONE (00:21)
[2019-03-19 05:44] LABS: ABS Basophils 0 10^3/ul (0-0.2); ABS Eosinophils 0.2 10^3/ul (0-0.6); ABS Lymphocytes 4.1 10^3/ul (1.0-4.8); ABS Monocytes 0.6 10^3/ul (0-0.8); ABS Neutrophils 3.3 10^3/ul (1.5-7.7); ABS Nucleated RBC 0 10^3/ul; Hematocrit 39 % (33-41); Hemoglobin 13.5 g/dL (12.0-16.0); Mean Corpuscular HGB Conc 35 g/dL (31-36); Mean Corpuscular Hemoglobin 31 pg (27-31); Mean Corpuscular Volume 88 fL (80-97); Mean Platelet Volume 7.4 fL (7.4-10.4); Nucleated Red Blood Cells % 0.1; Platelet Count 325 10^3/uL (150-450); Red Cell Distribution Width 14 % (10.5-15); White Blood Count 8.3 10^3/uL (3.5-10.8)
[2019-03-19 06:01] LABS: ALT 37 U/L (7-52); AST 21 U/L (13-39); Albumin/Globulin Ratio 1.4 (1-3); Alkaline Phosphatase 60 U/L (34-104); Anion Gap 9 mmol/L (2-11); BUN/Creatinine Ratio 14.7 (8-20); Blood Urea Nitrogen 11 mg/dL (6-24); CO2 Carbon Dioxide 27 mmol/L (22-32); Calcium 9.4 mg/dL (8.6-10.3); Chloride 104 mmol/L (101-111); Cholesterol 198 mg/dL; EGFR African American 96.4 (>60); EGFR Non-African American 79.6 (>60); Globulin 2.9 g/dL (2-4); Glucose 115 mg/dL (70-100); HDL Cholesterol 51.4 mg/dL; LDL Cholesterol 119 mg/dL; Magnesium 2.1 mg/dL (1.9-2.7); Potassium 3.5 mmol/L (3.5-5.0); Sodium 140 mmol/L (135-145); Total Protein 6.9 g/dL (6.4-8.9); Triglycerides 140 mg/dL
[2019-03-19 06:07] LABS: Troponin I 0.11 ng/mL (<0.04)
[2019-03-19] MEDS: Aspirin EC TAB* 81 MG TAB.EC PO SCH (08:31)
[2019-03-19] MEDS: amLODIPine TAB* 5 MG PO SCH (08:31)
[2019-03-19] MEDS: Cyanocobalamin TAB* 500 MCG PO SCH (08:31)
[2019-03-19] MEDS: Ticagrelor* 90 MG TAB PO SCH ×2 (08:31→21:29)
[2019-03-19] MEDS: Metoprolol Succinate XL TAB* 50 MG PO SCH ×2 (08:31→21:28)
[2019-03-19] MEDS ORDERED: amLODIPine TAB* 5 MG PO SCH (09:00)
[2019-03-19] MEDS ORDERED: Metoprolol Succinate XL TAB* 100 MG PO SCH (09:00)
[2019-03-19] MEDS ORDERED: NS 0.9% 1000 ML** 1,000 ML IV SCH ×2 (09:00→13:45)
[2019-03-19] MEDS ORDERED: Hydrochlorothiazide TAB* 25 MG PO SCH (09:00)
--- NOTE | 2019-03-19 10:17 | PN ---
Subjective Date of Service: 03/19/19 Interval History: HOSPITALIST PROGRESS NOTE Patient seen and examined at bedside. Care reviewed and d/w Dorina Saenz RN. She feels better today. No further episodes of chest pain/pressure or arm discomfort. Family History: Unchanged from Admission Social History: Unchanged from Admission Past Medical History: Unchanged from Admission Objective Active Medications: Acetaminophen (Tylenol Tab*) 650 mg PO Q4H PRN PRN Reason: FEVER/PAIN Last Admin: 03/18/19 23:48 Dose: 650 mg Al Hydrox/Mg Hydrox/Simethicone (Maalox Plus*) 30 ml PO Q6H PRN PRN Reason: INDIGESTION Amlodipine Besylate (Norvasc Tab*) 10 mg PO QAM [facility] Last Admin: 03/19/19 08:31 Dose: 10 mg Aspirin (Aspirin Ec Tab*) 81 mg PO DAILY [facility] Last Admin: 03/19/19 08:31 Dose: 81 mg Atorvastatin Calcium (Lipitor*) 80 mg PO 2100 [facility] Last Admin: 03/18/19 20:21 Dose: 80 mg Cyanocobalamin (Vitamin B12 Tab*) 1,000 mcg PO DAILY [facility] Last Admin: 03/19/19 08:31 Dose: 1,000 mcg Heparin Sodium (Porcine) (Heparin Vial(*)) 0 units IV .FOR BOLUSES PRN PRN Reason: HEPARIN DRIP BOLUSES Last Admin: 03/19/19 00:14 Dose: 4,000 units Hydrochlorothiazide (Hydrodiuril Tab*) 25 mg PO DAILY [facility] Last Admin: 03/19/19 08:31 Dose: 25 mg Sodium Chloride (Ns 0.9% 1000 Ml) 1,000 mls @ 100 mls/hr IV .per rate [facility] Last Admin: 03/19/19 08:32 Dose: 100 mls/hr Magnesium Hydroxide (Milk Of Magnesia Liq*) 30 ml PO Q4H PRN PRN Reason: CONSTIPATION Metoprolol Succinate (Toprol Xl Tab*) 50 mg PO BID [facility] Last Admin: 03/19/19 08:31 Dose: 50 mg Nitroglycerin (Nitroglycerin Tab 0.4 Mg*) 0.4 mg SL Q5M PRN PRN Reason: ANGINA Ticagrelor (Brilinta*) 90 mg PO BID [facility] Last Admin: 03/19/19 08:31 Dose: 90 mg Vital Signs - 8 hr 03/19/19 03/19/19 03/19/19 03:50 08:00 08:16 Temperature 98.1 F Pulse Rate 96 76 Respiratory 16 16 18 Rate Blood Pressure 134/74 154/81 (mmHg) O2 Sat by Pulse 98 100 Oximetry Oxygen Devices in Use Now: None Appearance: Pleasant morbid obese lady lying in bed in NAD. Eyes: No Scleral Icterus Ears/Nose/Mouth/Throat: Mucous Membranes Moist Neck: Trachea Midline Respiratory: Symmetrical Chest Expansion and Respiratory Effort, Clear to Auscultation Cardiovascular: NL Sounds; No Murmurs; No JVD, RRR Extremities: No Edema Neurological: Alert and Oriented x 3, NL Muscle Strength and Tone Result Diagrams: 03/19/19 05:22 03/19/19 05:27 Assess/Plan/Problems-Billing Assessment: Mrs Bucio is a 59yo F with PMH of morbid obesity with BMI 46, HTN, breast CA s/p lumpectomy, HLD, who presented to ED with a couple weeks of episodes of left arm pain, followed by chest pressure, and at last dyspnea and chest pain, found to have NSTEMI. - Patient Problems (1) NSTEMI (non-ST elevated myocardial infarction) Comment: - Asypmtomatic at this time. - No significant arrhythmia on Telemetry. - Cardiology input appreciated. - Continue Aspirin, Brilinta, Atorvastatin, Metoprolol, Amlodipine, Heparin drip. - Plan for cath today. (2) DVT prophylaxis Comment: - Heparin drip. (3) Full code status Status and Disposition: Inpatient.
[2019-03-19] MEDS ORDERED: Lidocaine 1% INJ* 10 MG/ML 30 ML SDV ONE (10:56)
[2019-03-19] MEDS ORDERED: Iohexol 350 (CONTRAST) 200 ML MDV IV ONE ×2 (10:56→12:24)
[2019-03-19] MEDS ORDERED: fentaNYL* 50 MCG/ML 2 ML VIAL (100 MCG VIAL) ONE ×3 (11:08→12:43)
[2019-03-19] MEDS ORDERED: Heparin(*) 1000 UNIT/ML 10 ML VIAL CATH LAB IV ONE ×2 (11:08→12:36)
[2019-03-19] MEDS ORDERED: Midazolam* 1 MG/ML 5 ML VIAL (5 MG) ONE (11:08)
[2019-03-19] MEDS ORDERED: VERAPAMIL 2.5 MG/ML 2 ML VIAL ** 5 mg/2 ml ONE (11:08)
[2019-03-19] MEDS ORDERED: nitroGLYCERIN DRIP* 25,000 MCG/250 ML BTL ONE (11:09)
[2019-03-19] MEDS ORDERED: Heparin 2 UNITS/ML IVPREMIX* 2,000 UNIT/1,000 ML BAG IV ONE (12:31)
[2019-03-19] MEDS ORDERED: Nitroglycerin TAB 0.4 MG* 0.4 MG TAB SL PRN (13:39)
[2019-03-19 13:41] LABS: INR 1.19 (0.77-1.02)
[2019-03-19] MEDS: Atorvastatin* 80 MG TAB PO SCH (21:28)
[2019-03-20 05:44] LABS: ABS Basophils 0 10^3/ul (0-0.2); ABS Eosinophils 0.2 10^3/ul (0-0.6); ABS Lymphocytes 3.2 10^3/ul (1.0-4.8); ABS Monocytes 0.7 10^3/ul (0-0.8); ABS Neutrophils 4.5 10^3/ul (1.5-7.7); ABS Nucleated RBC 0 10^3/ul; Eosinophil % 2.3 %; Hematocrit 40 % (33-41); Hemoglobin 13.8 g/dL (12.0-16.0); Lymphocyte % 37.2 %; Mean Corpuscular HGB Conc 35 g/dL (31-36); Mean Corpuscular Hemoglobin 31 pg (27-31); Mean Corpuscular Volume 88 fL (80-97); Mean Platelet Volume 7.2 fL (7.4-10.4); Nucleated Red Blood Cells % 0; Platelet Count 339 10^3/uL (150-450); Red Blood Count 4.53 10^6 /uL (3.70-4.87); Red Cell Distribution Width 14 % (10.5-15); White Blood Count 8.6 10^3/uL (3.5-10.8)
[2019-03-20] MEDS: Metoprolol Succinate XL TAB* 50 MG PO SCH (09:31)
[2019-03-20] MEDS: Cyanocobalamin TAB* 500 MCG PO SCH (09:31)
[2019-03-20] MEDS: Aspirin EC TAB* 81 MG TAB.EC PO SCH (09:32)
[2019-03-20] MEDS: amLODIPine TAB* 5 MG PO SCH (09:32)
[2019-03-20] MEDS: Ticagrelor* 90 MG TAB PO SCH (09:32)
[2019-03-20 11:56] VITALS: BP 135/89
[2019-03-20 12:03] LABS: Calcium 9.8 mg/dL (8.6-10.3); Potassium 3.7 mmol/L (3.5-5.0)
[2019-03-20 12:08] LABS: BUN/Creatinine Ratio 12.2 (8-20); EGFR African American 97.9 (>60); EGFR Non-African American 80.9 (>60)
--- NOTE | 2019-03-21 12:03 | DS ---
CC: Dr. Kassandra Shaw; Dr. Camacho; Dr. Russo * DISCHARGE SUMMARY: DATE OF ADMISSION: 03/18/19 DATE OF DISCHARGE: 03/20/19 PRIMARY CARE PROVIDER: Dr. Kassandra Sahw. CONSULTING FILLER FEEDER: Dr. Camacho. MATERIAL HANDLING CREW SUPERVISOR: Dr. Russo. DISCHARGE DIAGNOSES: 1. Rby-[id number]-[id number] myocardial infarction. 2. Morbid obesity with BMI of 46. SECONDARY DIAGNOSES: 1. Hypertension. 2. Breast cancer. MEDICATION LIST: 1. Fish oil 1 tablet p.o. daily. 2. Biotin 1 mg p.o. daily. 3. Hydrochlorothiazide 25 mg p.o. daily. 4. Cyanocobalamin 1000 mcg p.o. daily. 5. Cholecalciferol 2000 units p.o. daily. New medications: 1. Brilinta 90 mg p.o. b.i.d. 2. Nitroglycerin 0.4 mg sublingual q.5 minutes p.r.n. chest pain, maximum 3 doses. 3. Metoprolol succinate 50 mg p.o. b.i.d. 4. Atorvastatin 80 mg p.o. at bedtime. 5. Aspirin 81 mg p.o. daily. 6. Amlodipine 10 mg p.o. daily. HOSPITAL COURSE: Ms. Bucio is a 59-year-old lady with a past medical history as stated above that presented to the emergency room with complaints of left chest and arm discomfort. For more details about her presentation, I refer you to her history and physical. [id number] ND. In the emergency room, the patient had an initial troponin of 0.04 that peaked at 0.24. She was seen in consultation by Cardiology (Dr. Camacho) and his impression was the patient had a type 1 ND with class IV symptoms despite being on beta jaclyn and calcium channel jaclyn. His recommendation was for dual- antiplatelet therapy with aspirin and Brilinta , heparin drip, high-dose statin, to change her metoprolol to 50 mg twice a day and increase amlodipine. He discussed the case with Dr. Russo and the patient was taken to the company laborer on 03/19/19 where she had 1 drug-eluting stent placed to her LAD. The patient did well after the procedure with no further episodes of chest pain or discomfort. The patient had a hemoglobin A1c of 5.8 and a lipid profile showing triglycerides 140, cholesterol 198, LDL of 119, HDL of 51. She was felt to be medically stable for discharge to follow up with Dr. Camacho as outpatient. PHYSICAL EXAMINATION: Vital Signs: Temperature 98, heart rate 85, respiratory rate is 14, oxygen saturation is 95% room air, blood pressure 135/89. General: The patient is a pleasant, middle-aged, obese lady sitting up in bed, in no acute distress. CVS: Normal S1, S2. Regular rate and rhythm. Chest: Breath sounds bilaterally with no added sounds. Abdomen is obese, bowel sounds present. Extremities: No edema. Her right wrist cardiac cath site shows no significant hematoma or ecchymosis. Pulses are present with good capillary refill. Neuro: She is alert and oriented x3, able to move all 4 extremities. DIET: Heart-healthy diet. ACTIVITIES: As tolerated. The patient received education about exercise limitations after cardiac cath. DISPOSITION: To home. STATUS IN THE HOSPITAL: Inpatient. CONDITION AT THE TIME OF DISCHARGE: Fair. The patient received education about dietary changes and she will continue her efforts to lose weight. Her lipid profile and her hemoglobin A1c needs to be monitored as outpatient and I believe she will require higher doses of beta jaclyn as outpatient to bring her heart rate down closer to 60s to 70s. The patient received education about signs and symptoms that would prompt her return to the emergency department. Please keep in mind, this is a summarized version of this patient's hospital stay. If you need more information, please feel free to call me at [phone] or please obtain the full medical records. TIME SPENT: Approximately, 45 minutes was spent to complete this discharge. [id number]/[facility] #: [id number] KATHERINE
--- NOTE | 2019-03-21 22:39 | CATH ---
CC: Dr. Shaw; Dr. Russo * STENT REPORT: DATE OF PROCEDURE: 03/19/19 - ROOM #ICU-08 PRIMARY CARE PHYSICIAN: Dr. Shaw. PROCEDURES: Right radial artery access bilateral selective coronary cineangiography, left heart catheterization, left ventriculography. PROCEDURE ACCESS: Right radial artery sheath 6F slender. TECHNICAL CHALLENGE DURING THE PROCEDURE: Catheter torque because of significant angulation at the junction of the right subclavian artery and the aorta as well as rotation of the aorta. This made engagement of the RCA and LCA difficult. The left was engaged with a 6FL 3.5, the RCA with an MP. MEDICATIONS: 1. Subcu lidocaine. 2. IV Versed. 3. IV fentanyl. 4. Nitroglycerin 300 mcg. 5. Heparin 3000 units. 6. Verapamil 3 mg IA. 7. Aspirin 81 mg p.o. 8. Brilinta 90 mg p.o. pre laborer prestressed concrete. 9. Heparin 7000 units IV. HEMODYNAMICS: Initial AO 120/76. LV 144/11-21, no aortic valve gradient on pullback. LV gram was not performed due to difficulty of crossing the aortic value with a pigtail even with a wire, likely due to geometry of her aortic root and the angulation at her right subclavian aortic junction. Guiding catheter 6F Ikari left 3.5. 0.014 [employer] wires were positioned in the diagonal as well as LAD. The diagonal ostium was dilated with a scoring balloon 2.5 x 15 mm, 8 atmospheres 30 seconds. The LAD was then stented over the LAD wire with deployment of a 3.0 x 16 Synergy drug-eluting stent at 11 atmospheres. The proximal end of the stent, proximal to the diagonal origin was postdilated with a 3 x 8 NC balloon, 16 atmospheres 30 seconds. The distal end of the stent appeared well apposed with a distal stepdown, was not postdilated in order to minimize risk of losing the diagonal. ANGIOGRAPHY: Left main: The left main is normal, large, has no stenosis. LAD: The LAD is large, has a hazy thrombus-containing eccentric stenosis before the first septal and first diagonal. The diagonal ostium appears to be involved with a 75% stenosis or greater. The LAD continuation extends to the apex. Circumflex: The circumflex is now dominant, is large, supplies a single large bifurcated marginal, which supplies the entire obtuse margin. AV groove circumflex ends with a trivial AV groove branch. RCA: It is anterior in take off, low in the right cusp, was injected nonselectively with the multipurpose catheter with adequate filling demonstrating it to have mild proximal irregularity with less than 30% stenosis , and no significant distal stenosis, with an acute marginal branch and a number of small posterolaterals as well as a small PDA. The RCA has no significant stenosis. After scoring balloon angioplasty of the diagonal followed by stenting of the LAD, the diagonal is widely patent as it is the stented segment. There is a distal stepdown, DAISY flow is 3. There is no dissection, no compromise of the diagonal. CONCLUSION: Single-vessel disease, LAD diagonal with a Ley 1,1,0 bifurcation lesion; excellent angiographic result with scoring balloon dilatation of the diagonal followed by stenting of the LAD. Elevated LVDP, otherwise normal left-sided hemodynamics. Significant tortuosity of the aortoiliac junction as well as distorted geometry of the aortic root making selective engagement of the coronary arteries technically challenging. [id number]/[facility] #: [id number] KATHERINE
== END 2019-03-20 13:30 | disposition home or self-care (01) | DRG 174 ==
LOC: ED 10:01 → MEDTELE 16:16 → ICU 03-19 13:44
PROVIDERS: ADMIT Internal Medicine; ATTEND Internal Medicine
PROC: B2111ZZ Fluoroscopy of Multiple Coronary Arteries using Low Osmolar Contrast (ICD-10-PCS; 2019-03-19)
PROC: 4A023N7 Measurement of Cardiac Sampling and Pressure, Left Heart, Percutaneous Approach (ICD-10-PCS; 2019-03-19)
PROC: B2151ZZ Fluoroscopy of Left Heart using Low Osmolar Contrast (ICD-10-PCS; 2019-03-19)
PROC: 027034Z Dilation of Coronary Artery, One Artery with Drug-eluting Intraluminal Device, Percutaneous Approach (ICD-10-PCS; principal; 2019-03-19 11:30)
DX: I21.4 Non-ST elevation (NSTEMI) myocardial infarction (principal); Z68.42 Body mass index [BMI] 45.0-49.9, adult; E04.1 Nontoxic single thyroid nodule; I25.10 Atherosclerotic heart disease of native coronary artery without angina pectoris; E78.5 Hyperlipidemia, unspecified; I10 Essential (primary) hypertension; E66.01 Morbid (severe) obesity due to excess calories; Z88.0 Allergy status to penicillin; Z88.8 Allergy status to other drugs, medicaments and biological substances; Z91.040 Latex allergy status; Z90.49 Acquired absence of other specified parts of digestive tract; Z82.49 Family history of ischemic heart disease and other diseases of the circulatory system; Z87.891 Personal history of nicotine dependence; Z72.89 Other problems related to lifestyle; Z85.3 Personal history of malignant neoplasm of breast; Z98.51 Tubal ligation status; Z79.82 Long term (current) use of aspirin; Z79.02 Long term (current) use of antithrombotics/antiplatelets
CPT/HCPCS: 36415; 71045; 71275; 80048; 80053; 80061; 83036; 83605; 83735; 84436; 84439; 84443; 84479; 84484; 85025; 85347; 85610; 85730; 93005; 93458; 99156; 99157; 99284; A9270-GY; C1725; C1769; C1876; C1887; C9600-LD; J1644; J2250; J3010; Q9967

== ENCOUNTER 2021-02-06 04:27 | Observation (INO) ==
[2021-02-06 05:17] LABS: ABS Basophils 0.1 10^3/ul (0-0.2); ABS Eosinophils 0.2 10^3/ul (0-0.6); ABS Lymphocytes 3.1 10^3/ul (1.0-4.8); ABS Monocytes 0.5 10^3/ul (0-0.8); Eosinophil % 2.5 %; Hematocrit 42 % (35-47); Lymphocyte % 45.3 %; Mean Corpuscular HGB Conc 34 g/dL (31-36); Mean Corpuscular Hemoglobin 29 pg (27-31); Mean Corpuscular Volume 87 fL (80-97); Mean Platelet Volume 7.7 fL (7.4-10.4); Nucleated Red Blood Cells % 0.1; Platelet Count 331 10^3/uL (150-450); Red Blood Count 4.77 10^6 /uL (3.70-4.87); Red Cell Distribution Width 15 % (10-15); White Blood Count 6.9 10^3/uL (3.5-10.8)
[2021-02-06 05:41] LABS: ALT 19 U/L (7-52); Albumin 4.2 g/dL (3.2-5.2); Albumin/Globulin Ratio 1.5 (1-3); Alkaline Phosphatase 64 U/L (34-104); BUN/Creatinine Ratio 26.4 (8-20); Blood Urea Nitrogen 19 mg/dL (6-24); CO2 Carbon Dioxide 21 mmol/L (22-32); Calcium 9.6 mg/dL (8.6-10.3); Chloride 108 mmol/L (101-111); EGFR African American 100.3 (>60); EGFR Non-African American 82.9 (>60); Globulin 2.8 g/dL (2-4); Glucose 109 mg/dL (70-100); Magnesium 1.9 mg/dL (1.9-2.7); Sodium 139 mmol/L (135-145)
[2021-02-06 06:05] LABS: Urine Appearance Clear; Urine Bilirubin Negative (Negative); Urine Blood Negative (Negative); Urine Color Straw; Urine Glucose Negative (Negative); Urine Ketones Negative (Negative); Urine Nitrite Negative (Negative); Urine Protein Negative (Negative); Urine Specific Gravity 1.008 (1.010-1.030); Urine Urobilinogen Negative (Negative)
[2021-02-06 06:11] LABS: TSH Ultra Thyroid Stim Horm 1.96 mcIU/mL (0.34-5.60)
[2021-02-06 06:29] LABS: Anion Gap 10 mmol/L (2-11)
[2021-02-06 06:51] LABS: INR 0.93 (0.82-1.09)
[2021-02-06] MEDS ORDERED: Metoprolol Tartrate 5 mg VIAL 5 ml VIAL (1 mg/ml) IV ONE (08:06)
[2021-02-06] MEDS ORDERED: Heparin DRIP 25,000 UNITS BAG 25,000 UNITS/500 ML BAG IV SCH (08:30)
[2021-02-06 08:48] LABS: Activated Partial Thrombo Time 27.9 seconds (26.0-38.0)
[2021-02-06] MEDS ORDERED: Heparin 5000 UNITS/ML 1 mL VIAL IV PRN (09:00)
[2021-02-06] MEDS ORDERED: Aspirin EC 81 mg TAB.EC (enteric coated) PO SCH (09:00)
[2021-02-06] MEDS ORDERED: diPHENhydraMINE 25 mg TAB PO PRN (09:01)
[2021-02-06] MEDS ORDERED: NS 0.9% 1000 ml BAG 1,000 ML IV SCH (09:15)
[2021-02-06] MEDS ORDERED: Heparin 1,000 UNIT/ML 10 ml (10,000 UNITS) CATHLAB/DIALYSIS ONE (09:29)
[2021-02-06] MEDS ORDERED: VERAPAMIL 2.5 MG/ML 2 ML VIAL ** 5 mg/2 ml ONE (09:29)
[2021-02-06] MEDS ORDERED: Iohexol 350 (CONTRAST) 200 ML MDV IV ONE ×2 (09:29→10:36)
[2021-02-06] MEDS ORDERED: nitroGLYCERIN DRIP 25,000 MCG/250 ML BTL ONE (09:29)
[2021-02-06] MEDS ORDERED: Heparin 2 UNITS/ML 1000 mls 2,000 ML IV ONE (09:29)
[2021-02-06] MEDS ORDERED: Lidocaine 1% VIAL 10 MG/ML VIAL ONE (09:29)
[2021-02-06] MEDS ORDERED: fentaNYL 100 mcg/2 ml 50 MCG/ML VIAL ONE (09:45)
[2021-02-06] MEDS ORDERED: Midazolam 5 mg/5 ml VIAL 1 mg/ml 5 ml VIAL (5 mg) ONE (09:45)
[2021-02-06 12:47] VITALS: BP 140/84
== END 2021-02-06 16:48 | disposition home or self-care (01) ==
LOC: MEDTELE 04:27 → ED 04:27 → MEDTELE 09:47
PROVIDERS: ADMIT Internal Medicine; ATTEND Internal Medicine